=== PATIENT | female | born 1945 | race Caucasian/White ===

== ENCOUNTER 2023-04-07 11:51 | Inpatient (IN) | payer MEDICARE ==
[~2023-04-07] VITALS: Ht 152.4 cm; Wt 51.0 kg
[2023-04-07 14:16] LABS: BASO % 0.3 % (0.0-1.0); EOS % 0.3 % (0.0-3.0); HEMATOCRIT 34.8 % (36.0-47.0); LYMPH # 2.5 10^3/uL (1.5-5.0); LYMPH % 23.3 % (24.0-44.0); MEAN CORPUSCULAR HEMOGLOBIN 25.9 pg (27.0-33.0); MEAN CORPUSCULAR HGB CONC 31.6 g/dl (32.0-36.5); MEAN CORPUSCULAR VOLUME 82.1 fl (80.0-96.0); MONO # 0.4 10^3/uL (0.0-0.8); MONO % 3.6 % (2.0-8.0); NEUTROPHILS # 7.8 10^3/uL (1.5-8.5); NEUTROPHILS % 71.5 % (36.0-66.0); PLATELET COUNT, AUTOMATED 211 10^3/uL (150-450); RED BLOOD COUNT 4.24 10^6/uL (4.00-5.40); WHITE BLOOD COUNT 10.9 10^3/uL (4.0-10.0)
[2023-04-07 14:27] LABS: INR 1.08; PROTHROMBIN TIME 13.7 SECONDS (12.5-14.5)
[2023-04-07 14:28] LABS: PARTIAL THROMBOPLASTIN TIME 28.1 SECONDS (24.8-34.2)
[2023-04-07 14:33] LABS: LIPASE 33 U/L (12-53)
[2023-04-07 14:36] LABS: ALBUMIN 3.1 G/DL (3.2-5.2); ALKALINE PHOSPHATASE 124 U/L (46-116); ALT/SGPT 36 U/L (7.0-40); AST/SGOT 25 U/L (<34); BILIRUBIN,DIRECT 0.2 MG/DL (<0.4); BILIRUBIN,TOTAL 0.5 MG/DL (0.3-1.2); BLOOD UREA NITROGEN 19 MG/DL (9-23); CALCIUM LEVEL 8.6 MG/DL (8.3-10.6); CARBON DIOXIDE LEVEL 27 MMOL/L (20-31); CHLORIDE LEVEL 101 MMOL/L (98-107); GLOMERULAR FILTRATION RATE > 60.0 (>39); GLUCOSE, FASTING 110 MG/DL (74-106); POTASSIUM SERUM 4.5 MMOL/L (3.5-5.1); SODIUM LEVEL 133 MMOL/L (136-145); TOTAL PROTEIN 6.1 G/DL (5.7-8.2)
[2023-04-07] MEDS ORDERED: ISOVUE-370 76% 100ML VIAL As Ordered ONE (16:04)
[2023-04-07] MEDS ORDERED: NS 1,000 ML IV ONE (16:05)
[2023-04-07] MEDS ORDERED: MORPHINE 4 MG/ML 1ML VIAL IV ONE (16:05)
[2023-04-07] MEDS ORDERED: PANTOPRAZOLE 40MG VIAL IV ONE (16:05)
[2023-04-07 17:00] LABS: RSV AMPLIFICATION NEGATIVE (NEGATIVE)
[2023-04-07] MEDS ORDERED: MED REC IN PROGRESS XX SCH (18:40)
[2023-04-07] MEDS ORDERED: LR 1,000 ML IV SCH (19:20)
[2023-04-07] MEDS ORDERED: IBUP200C25 PO (19:44)
[2023-04-07] MEDS ORDERED: RA B1TAB7 PO (19:47)
[2023-04-07] MEDS ORDERED: BIOT1CAP2 PO (19:47)
[2023-04-07] MEDS ORDERED: ZINC220T3 PO (19:48)
[2023-04-07] MEDS ORDERED: VITA100093 PO (19:50)
[2023-04-07 19:53] LABS: HEMATOCRIT 28.2 % (36.0-47.0); HEMOGLOBIN 9.1 g/dl (12.0-15.5)
[2023-04-07] MEDS ORDERED: HOME MED LIST COMPLETE! XX SCH (20:05)
[2023-04-07] MEDS: SUCRALFATE SUSP 1GM/10ML UD PO SCH (21:14)
[2023-04-07 21:48] VITALS: BP 115/64; TEMP 97.5; O2SAT 96
[2023-04-08] VITALS: BP 98/50; TEMP 98.3; O2SAT 94
[2023-04-08 00:47] LABS: HEMATOCRIT 28.1 % (36.0-47.0); HEMOGLOBIN 8.9 g/dl (12.0-15.5)
[2023-04-08] MEDS: ACETAMINOPHEN TAB 650MG DOSE (2X325MG) PO PRN ×2 (01:46→08:41)
[2023-04-08 04:00] VITALS: BP 115/76; TEMP 98.5; O2SAT 96
[2023-04-08] MEDS: LIDOCAINE 5% (LIDODERM) PATCH TD SCH ×2 (04:56→16:56)
[2023-04-08 07:39] LABS: BASO % 0.6 % (0.0-1.0); EOS % 0.6 % (0.0-3.0); HEMATOCRIT 28.9 % (36.0-47.0); HEMOGLOBIN 9.1 g/dl (12.0-15.5); LYMPH # 1.4 10^3/uL (1.5-5.0); LYMPH % 21.2 % (24.0-44.0); MEAN CORPUSCULAR HEMOGLOBIN 26.1 pg (27.0-33.0); MEAN CORPUSCULAR HGB CONC 31.5 g/dl (32.0-36.5); MEAN CORPUSCULAR VOLUME 82.8 fl (80.0-96.0); MONO # 0.3 10^3/uL (0.0-0.8); MONO % 3.9 % (2.0-8.0); NEUTROPHILS # 4.9 10^3/uL (1.5-8.5); PLATELET COUNT, AUTOMATED 189 10^3/uL (150-450); RED BLOOD COUNT 3.49 10^6/uL (4.00-5.40); WHITE BLOOD COUNT 6.8 10^3/uL (4.0-10.0)
[2023-04-08 08:00] VITALS: BP 153/73; TEMP 98.6; O2SAT 96
[2023-04-08 08:03] LABS: BLOOD UREA NITROGEN 16 MG/DL (9-23); CARBON DIOXIDE LEVEL 23 MMOL/L (20-31); CHLORIDE LEVEL 107 MMOL/L (98-107); CREATININE FOR GFR 0.54 MG/DL (0.55-1.30); GLOMERULAR FILTRATION RATE > 60.0 (>39); GLUCOSE, FASTING 113 MG/DL (74-106); MAGNESIUM LEVEL 1.8 MG/DL (1.8-2.4); POTASSIUM SERUM 4.4 MMOL/L (3.5-5.1); SODIUM LEVEL 137 MMOL/L (136-145)
[2023-04-08] MEDS: SUCRALFATE SUSP 1GM/10ML UD PO SCH ×4 (08:35→20:27)
[2023-04-08] MEDS: VITAMIN D 1,000 INTERNATIONAL UNITS TABLET PO SCH (08:35)
[2023-04-08] MEDS: PANTOPRAZOLE 40MG VIAL IV SCH ×2 (08:36→20:27)
[2023-04-08] MEDS ORDERED: FIDAXOMICIN 200 MG TAB (DIFICID) PO SCH (09:00)
[2023-04-08 12:00] VITALS: BP 133/66; TEMP 98.3; O2SAT 96
[2023-04-08] MEDS: traMADol 50 MG TAB PO PRN ×2 (12:27→20:28)
[2023-04-08 12:30] LABS: HEMATOCRIT 32.4 % (36.0-47.0); HEMOGLOBIN 10.2 g/dl (12.0-15.5)
[2023-04-08] MEDS ORDERED: FIDA200TA PO (15:05)
[2023-04-08] MEDS ORDERED: PROT1TAB2 PO (15:05)
[2023-04-08] MEDS ORDERED: SUCR1ORA PO (15:05)
[2023-04-08] MEDS ORDERED: VANC125C3 PO (15:55)
[2023-04-08 16:00] VITALS: BP 108/57; TEMP 98.1; O2SAT 96
[2023-04-08] MEDS: VANCOMYCIN ORAL SOL 250MG/5ML ORAL SYRINGE PO SCH ×2 (16:36→20:28)
[2023-04-08 18:29] LABS: HEMATOCRIT 30.2 % (36.0-47.0); HEMOGLOBIN 9.5 g/dl (12.0-15.5)
[2023-04-08 20:00] VITALS: BP 128/60; TEMP 98.3; O2SAT 97
[2023-04-09] MEDS: traMADol 50 MG TAB PO PRN (02:36)
[2023-04-09 02:53] LABS: HEMOGLOBIN 9.1 g/dl (12.0-15.5)
[2023-04-09 04:00] VITALS: BP 105/57; TEMP 98; O2SAT 97
[2023-04-09 05:45] LABS: BASO % 0.4 % (0.0-1.0); EOS # 0.1 10^3/uL (0.0-0.5); EOS % 1.1 % (0.0-3.0); HEMATOCRIT 27.7 % (36.0-47.0); HEMOGLOBIN 8.9 g/dl (12.0-15.5); LYMPH # 1.5 10^3/uL (1.5-5.0); LYMPH % 18.7 % (24.0-44.0); MEAN CORPUSCULAR HEMOGLOBIN 26.3 pg (27.0-33.0); MEAN CORPUSCULAR HGB CONC 32.1 g/dl (32.0-36.5); MEAN CORPUSCULAR VOLUME 81.7 fl (80.0-96.0); MONO # 0.3 10^3/uL (0.0-0.8); MONO % 3.3 % (2.0-8.0); NEUTROPHILS # 6.1 10^3/uL (1.5-8.5); PLATELET COUNT, AUTOMATED 199 10^3/uL (150-450); RED BLOOD COUNT 3.39 10^6/uL (4.00-5.40)
[2023-04-09 06:20] LABS: BLOOD UREA NITROGEN 19 MG/DL (9-23); CARBON DIOXIDE LEVEL 25 MMOL/L (20-31); CHLORIDE LEVEL 105 MMOL/L (98-107); CREATININE FOR GFR 0.59 MG/DL (0.55-1.30); GLOMERULAR FILTRATION RATE > 60.0 (>39); GLUCOSE, FASTING 118 MG/DL (74-106); MAGNESIUM LEVEL 1.7 MG/DL (1.8-2.4); SODIUM LEVEL 136 MMOL/L (136-145)
[2023-04-09 08:00] VITALS: BP 134/68; TEMP 98.3; O2SAT 97
[2023-04-09] MEDS ORDERED: MAG SULF 1GM/100ML (MAG RUN) 1 GM in IV 1 EA IV ONE (08:00)
[2023-04-09] MEDS: PANTOPRAZOLE 40MG VIAL IV SCH (08:02)
[2023-04-09] MEDS: VITAMIN D 1,000 INTERNATIONAL UNITS TABLET PO SCH (08:02)
[2023-04-09] MEDS: SUCRALFATE SUSP 1GM/10ML UD PO SCH ×2 (08:02→12:14)
[2023-04-09] MEDS: VANCOMYCIN ORAL SOL 250MG/5ML ORAL SYRINGE PO SCH ×2 (08:03→12:14)
[2023-04-09] MEDS: LIDOCAINE 5% (LIDODERM) PATCH TD SCH (09:00)
[2023-04-09] MEDS: ACETAMINOPHEN TAB 650MG DOSE (2X325MG) PO PRN (10:58)
[2023-04-10] MEDS ORDERED: VANC1CAP6 PO (13:45)
[2023-04-10] MEDS ORDERED: FAMO20TA PO (13:47)
== END 2023-04-09 13:33 | disposition home or self-care (01) | DRG 372 ==
LOC: M ED 11:51 → M ED INP 18:19 → UNDOADMIN 18:19 → M ED INP 20:58 → M ICU 21:55
PROVIDERS: ADMIT Family Medicine; ATTEND Internal Medicine
DX: A04.72 Enterocolitis due to Clostridium difficile, not specified as recurrent (principal); D62 Acute posthemorrhagic anemia; E87.1 Hypo-osmolality and hyponatremia; K21.9 Gastro-esophageal reflux disease without esophagitis; R01.1 Cardiac murmur, unspecified; H26.9 Unspecified cataract; K58.9 Irritable bowel syndrome, unspecified; R73.9 Hyperglycemia, unspecified; G89.29 Other chronic pain; M54.9 Dorsalgia, unspecified; D50.9 Iron deficiency anemia, unspecified; R53.83 Other fatigue; R06.02 Shortness of breath; R53.1 Weakness; N28.1 Cyst of kidney, acquired; Z88.0 Allergy status to penicillin

== ENCOUNTER 2023-04-10 12:10 | Observation (INO) | payer MEDICARE ==
[~2023-04-10] VITALS: Ht 152.4 cm; Wt 50.9 kg
[~2023-04-10 12:10] MED LIST: BIOT1CAP2 PO; FIDA200TA PO; IBUP200C25 PO; PROT1TAB2 PO; RA B1TAB7 PO; SUCR1ORA PO; VANC125C3 PO; VITA100093 PO; ZINC220T3 PO
[2023-04-10] MEDS ORDERED: MED REC IN PROGRESS XX SCH (12:35)
[2023-04-10] MEDS ORDERED: MED REC CURRENTLY UNOBTAINABLE XX SCH (13:05)
[2023-04-10 13:42] LABS: BASO % 0.3 % (0.0-1.0); EOS % 0.2 % (0.0-3.0); HEMATOCRIT 30.3 % (36.0-47.0); HEMOGLOBIN 9.8 g/dl (12.0-15.5); LYMPH % 20.2 % (24.0-44.0); MEAN CORPUSCULAR HEMOGLOBIN 26.1 pg (27.0-33.0); MEAN CORPUSCULAR HGB CONC 32.3 g/dl (32.0-36.5); MEAN CORPUSCULAR VOLUME 80.6 fl (80.0-96.0); MONO # 0.3 10^3/uL (0.0-0.8); NEUTROPHILS # 7.3 10^3/uL (1.5-8.5); NEUTROPHILS % 75.7 % (36.0-66.0); PLATELET COUNT, AUTOMATED 236 10^3/uL (150-450); RED BLOOD COUNT 3.76 10^6/uL (4.00-5.40); WHITE BLOOD COUNT 9.7 10^3/uL (4.0-10.0)
[2023-04-10] MEDS ORDERED: VANC1CAP6 PO (13:45)
[2023-04-10] MEDS ORDERED: FAMO20TA PO (13:47)
[2023-04-10] MEDS ORDERED: HOME MED LIST COMPLETE! XX SCH (13:55)
[2023-04-10 14:07] LABS: LIPASE 28 U/L (12-53)
[2023-04-10 14:08] LABS: CK-MB VALUE MASS 2.4 NG/ML (<3.6)
[2023-04-10 14:10] LABS: AMYLASE 36 U/L (30-118); CPK CREATINE PHOSPHOKINASE 49 U/L (34-145); MB/CK RELATIVE INDEX 4.89 (< OR =4)
[2023-04-10 14:12] LABS: INR 1.2; PROTHROMBIN TIME 14.8 SECONDS (12.5-14.5)
[2023-04-10 14:13] LABS: RSV AMPLIFICATION NEGATIVE (NEGATIVE)
[2023-04-10 14:15] LABS: ALBUMIN 2.8 G/DL (3.2-5.2); ALKALINE PHOSPHATASE 138 U/L (46-116); ALT/SGPT 39 U/L (7.0-40); AST/SGOT 28 U/L (<34); BILIRUBIN,DIRECT 0.2 MG/DL (<0.4); BILIRUBIN,TOTAL 0.5 MG/DL (0.3-1.2); BLOOD UREA NITROGEN 15 MG/DL (9-23); CALCIUM LEVEL 8.4 MG/DL (8.3-10.6); CARBON DIOXIDE LEVEL 23 MMOL/L (20-31); CHLORIDE LEVEL 104 MMOL/L (98-107); CREATININE FOR GFR 0.49 MG/DL (0.55-1.30); GLOMERULAR FILTRATION RATE > 60.0 (>39); GLUCOSE, FASTING 105 MG/DL (74-106); MAGNESIUM LEVEL 1.8 MG/DL (1.8-2.4); POTASSIUM SERUM 4.3 MMOL/L (3.5-5.1); SODIUM LEVEL 136 MMOL/L (136-145); TOTAL PROTEIN 5.3 G/DL (5.7-8.2)
[2023-04-10] MEDS ORDERED: ONDANSETRON 4MG 2ML VIAL IV ONE (14:15)
[2023-04-10] MEDS ORDERED: MORPHINE 2 MG/ML 1ML VIAL IV PRN (14:15)
[2023-04-10] MEDS ORDERED: NS 1,000 ML IV ONE (14:15)
[2023-04-10] MEDS ORDERED: ISOVUE-370 76% 100ML VIAL As Ordered ONE (14:39)
[2023-04-10 15:37] LABS: CK-MB VALUE MASS 1.3 NG/ML (<3.6)
[2023-04-10 15:38] LABS: MB/CK RELATIVE INDEX 3.42 (< OR =4)
[2023-04-10 15:52] LABS: MAGNESIUM LEVEL 1.7 MG/DL (1.8-2.4)
[2023-04-10] MEDS ORDERED: MAG SULF 1GM/100ML (MAG RUN) 1 GM in IV 1 EA IV ONE (16:00)
[2023-04-10] MEDS ORDERED: ONDANSETRON 4MG 2ML VIAL IV PRN (16:55)
[2023-04-10] MEDS ORDERED: ACETAMINOPHEN TAB 650MG DOSE (2X325MG) PO PRN (16:55)
[2023-04-10 18:12] LABS: PERCENT SATURATION 6.5 % (13.2-45.0)
[2023-04-10 18:15] LABS: FERRITIN 34.7 NG/ML (7.3-270.7)
[2023-04-10] MEDS: SUCRALFATE SUSP 1GM/10ML UD PO SCH ×2 (18:16→20:49)
[2023-04-10] MEDS: LACTOBACILLUS ACIDOPHILUS CAP (BACID) PO SCH (18:17)
[2023-04-10] MEDS: NS 1,000 ML IV SCH (18:17)
[2023-04-10] MEDS: MORPHINE 2 MG/ML 1ML VIAL IV PRN ×2 (18:27→22:44)
[2023-04-10 20:04] VITALS: BP 119/62; TEMP 98.2; O2SAT 94
[2023-04-10] MEDS: FAMOTIDINE 20 MG TAB PO SCH (20:49)
[2023-04-10] MEDS: VANCOMYCIN ORAL SOL 250MG/5ML ORAL SYRINGE PO SCH (21:02)
[2023-04-11] MEDS: VANCOMYCIN ORAL SOL 250MG/5ML ORAL SYRINGE PO SCH ×5 (00:43→22:27)
[2023-04-11] MEDS: MORPHINE 2 MG/ML 1ML VIAL IV PRN ×3 (02:56→13:14)
[2023-04-11] MEDS: NS 1,000 ML IV SCH ×2 (02:57→12:17)
[2023-04-11 06:07] VITALS: BP 122/60; TEMP 98.1; O2SAT 95
[2023-04-11 07:20] LABS: HEMOGLOBIN 8.4 g/dl (12.0-15.5); MEAN CORPUSCULAR HEMOGLOBIN 25.8 pg (27.0-33.0); MEAN CORPUSCULAR HGB CONC 31.1 g/dl (32.0-36.5); MEAN CORPUSCULAR VOLUME 82.8 fl (80.0-96.0); PLATELET COUNT, AUTOMATED 184 10^3/uL (150-450); RED BLOOD COUNT 3.26 10^6/uL (4.00-5.40); WHITE BLOOD COUNT 7.5 10^3/uL (4.0-10.0)
[2023-04-11 07:55] LABS: ALBUMIN 2.3 G/DL (3.2-5.2); ALKALINE PHOSPHATASE 115 U/L (46-116); ALT/SGPT 31 U/L (7.0-40); AST/SGOT 17 U/L (<34); BILIRUBIN,TOTAL 0.3 MG/DL (0.3-1.2); BLOOD UREA NITROGEN 13 MG/DL (9-23); CALCIUM LEVEL 7.5 MG/DL (8.3-10.6); CARBON DIOXIDE LEVEL 24 MMOL/L (20-31); CHLORIDE LEVEL 106 MMOL/L (98-107); CREATININE FOR GFR 0.55 MG/DL (0.55-1.30); GLOMERULAR FILTRATION RATE > 60.0 (>39); GLUCOSE, FASTING 104 MG/DL (74-106); MAGNESIUM LEVEL 1.9 MG/DL (1.8-2.4); POTASSIUM SERUM 3.8 MMOL/L (3.5-5.1); SODIUM LEVEL 137 MMOL/L (136-145); TOTAL PROTEIN 4.5 G/DL (5.7-8.2)
[2023-04-11] MEDS: LACTOBACILLUS ACIDOPHILUS CAP (BACID) PO SCH ×2 (08:49→17:30)
[2023-04-11] MEDS: FAMOTIDINE 20 MG TAB PO SCH ×2 (08:49→20:34)
[2023-04-11] MEDS: SUCRALFATE SUSP 1GM/10ML UD PO SCH ×4 (08:49→20:34)
[2023-04-11] MEDS: VITAMIN D 1,000 INTERNATIONAL UNITS TABLET PO SCH (08:49)
[2023-04-11 14:00] VITALS: BP 127/70; TEMP 97.9; O2SAT 95
[2023-04-11] MEDS: traMADol 50 MG TAB PO PRN (18:31)
[2023-04-11 20:00] VITALS: BP 103/61; TEMP 98.8; O2SAT 94
[2023-04-11] MEDS: PERCOCET 5MG/325MG TAB PO PRN (22:27)
[2023-04-12 06:00] VITALS: BP 133/75; TEMP 98.1; O2SAT 96
[2023-04-12] MEDS: traMADol 50 MG TAB PO PRN (06:01)
[2023-04-12] MEDS: VANCOMYCIN ORAL SOL 250MG/5ML ORAL SYRINGE PO SCH ×3 (06:02→16:38)
[2023-04-12 06:59] LABS: HEMOGLOBIN 9.3 g/dl (12.0-15.5); MEAN CORPUSCULAR HEMOGLOBIN 26.5 pg (27.0-33.0); MEAN CORPUSCULAR HGB CONC 32.1 g/dl (32.0-36.5); MEAN CORPUSCULAR VOLUME 82.6 fl (80.0-96.0); PLATELET COUNT, AUTOMATED 204 10^3/uL (150-450); RED BLOOD COUNT 3.51 10^6/uL (4.00-5.40); WHITE BLOOD COUNT 8.8 10^3/uL (4.0-10.0)
[2023-04-12 07:30] LABS: ALBUMIN 2.4 G/DL (3.2-5.2); ALKALINE PHOSPHATASE 123 U/L (46-116); ALT/SGPT 34 U/L (7.0-40); AST/SGOT 22 U/L (<34); BILIRUBIN,TOTAL 0.4 MG/DL (0.3-1.2); BLOOD UREA NITROGEN 11 MG/DL (9-23); CALCIUM LEVEL 7.9 MG/DL (8.3-10.6); CARBON DIOXIDE LEVEL 24 MMOL/L (20-31); CHLORIDE LEVEL 106 MMOL/L (98-107); CREATININE FOR GFR 0.56 MG/DL (0.55-1.30); GLOMERULAR FILTRATION RATE > 60.0 (>39); GLUCOSE, FASTING 104 MG/DL (74-106); POTASSIUM SERUM 3.6 MMOL/L (3.5-5.1); SODIUM LEVEL 135 MMOL/L (136-145); TOTAL PROTEIN 5.2 G/DL (5.7-8.2)
[2023-04-12] MEDS ORDERED: IRON SUCROSE 200 MG in NS 100 ML IV ONE (09:00)
[2023-04-12] MEDS: FAMOTIDINE 20 MG TAB PO SCH (09:44)
[2023-04-12] MEDS: VITAMIN D 1,000 INTERNATIONAL UNITS TABLET PO SCH (09:44)
[2023-04-12] MEDS: LACTOBACILLUS ACIDOPHILUS CAP (BACID) PO SCH ×2 (09:44→16:38)
[2023-04-12] MEDS: SUCRALFATE SUSP 1GM/10ML UD PO SCH ×3 (09:44→16:37)
[2023-04-12 09:48] VITALS: BP 132/75; TEMP 97.7; O2SAT 96
[2023-04-12 11:04] VITALS: BP 145/79; TEMP 97.7; O2SAT 95
[2023-04-12 14:00] VITALS: BP 145/79; TEMP 97.7; O2SAT 93
[2023-04-12] MEDS: PERCOCET 5MG/325MG TAB PO PRN (14:59)
[2023-04-12] MEDS ORDERED: ACET1TAB55 PO (15:53)
[2023-04-12] MEDS ORDERED: TRAM50TA2 PO (15:53)
[2023-04-12] MEDS ORDERED: RISATAB3 PO (15:53)
== END 2023-04-12 17:03 | disposition home or self-care (01) ==
LOC: M ED 12:10 → M ED INP 12:11 → ENRESERV 19:30 → M MSPAV 20:03
PROVIDERS: ADMIT Internal Medicine; ATTEND Internal Medicine
DX: R10.9 Unspecified abdominal pain (principal); A04.72 Enterocolitis due to Clostridium difficile, not specified as recurrent; K92.2 Gastrointestinal hemorrhage, unspecified; K63.89 Other specified diseases of intestine; D50.9 Iron deficiency anemia, unspecified; J90 Pleural effusion, not elsewhere classified; R94.31 Abnormal electrocardiogram [ECG] [EKG]; E83.42 Hypomagnesemia; R53.1 Weakness; R06.02 Shortness of breath; R63.4 Abnormal weight loss; K21.9 Gastro-esophageal reflux disease without esophagitis; M51.34 Other intervertebral disc degeneration, thoracic region; M51.36 Other intervertebral disc degeneration, lumbar region; Z88.0 Allergy status to penicillin; Z79.899 Other long term (current) drug therapy; Z79.2 Long term (current) use of antibiotics; Z80.0 Family history of malignant neoplasm of digestive organs; Z82.49 Family history of ischemic heart disease and other diseases of the circulatory system
CPT/HCPCS: 36415; 71045; 71275; 72072; 74177; 80047; 80048; 80053; 80076; 81001; 82150; 82550; 82553; 82728; 83550; 83605; 83690; 83735; 83880; 84484; 85025; 85027; 85610; 85730; 86850; 86900; 86901; 87631; 93005; 93041; 96361; 96365; 96366; 96367; 96375; 96376; 97161; 99285; G0378; J1756; J2405; J3475; Q9967